=== PATIENT | male | born 1930 | race Caucasian/White ===

== ENCOUNTER → 2017-01-11 | Outpatient (CLI) | payer MEDICARE, OTHER | END | disposition home or self-care (01) | LOC: PTH.S 01-10 09:09 → RAD.S 06:31 → PTH.S 07:30 | DX: M54.5 Low back pain (principal); M51.36 Other intervertebral disc degeneration, lumbar region; M47.816 Spondylosis without myelopathy or radiculopathy, lumbar region; M43.16 Spondylolisthesis, lumbar region; M48.06 Spinal stenosis, lumbar region; M79.605 Pain in left leg; M79.604 Pain in right leg ==